=== PATIENT | male | born 1945 | race Caucasian/White ===

== ENCOUNTER 2023-01-22 23:08 | Emergency (ER) | payer MEDICARE, MEDICAID ==
[~2023-01-22] VITALS: Ht 182.9 cm; Wt 77.3 kg
[2023-01-22 23:11] VITALS: BP 100/76
[2023-01-23] MEDS ORDERED: TETanus/Pertussis (Acell)/Diphther VAC/PF (Tdap-Adult) 0.5ml syringe IMVAC ONE (03:40)
[2023-01-23] MEDS ORDERED: AMOX-115 PO (05:05)
== END 2023-01-23 05:23 | disposition home or self-care (01) ==
LOC: ER 23:09
DX: S81.802A Unspecified open wound, left lower leg, initial encounter (principal); W54.0XXA Bitten by dog, initial encounter; Y93.89 Activity, other specified; Y92.89 Other specified places as the place of occurrence of the external cause; Y99.8 Other external cause status
CPT/HCPCS: 90471; 90715; 99283; J7030; A6449